=== PATIENT | female | born 2000 | race Caucasian/White ===

== ENCOUNTER → 2022-05-12 | Day surgery (SDC) | payer OTHER ==
[~2022-05-12] VITALS: Ht 167.6 cm; Wt 141.1 kg
[~2022-05-12] MED LIST: ADDERALL XR 2020 MG PO; ATORVASTATIN CA40 MG PO; BUSPAR5 MG PO; CLARITIN10 MG PO; FAMOTIDINE20 MG PO; METFORMIN HCL500 MG PO; METOPROLOL SUCC50 MG PO; PREGABALIN100 MG PO; PROMETHAZINE12.5 M1 PO; SERTRALINE HCL50 MG PO; TIZANIDINE HCL4 MG PO; VIBRAMYCIN100 MG PO; VICTOZA 3-0.6 MG/0.1 IJ; VITAMIN D310 MCG PO
[2022-05-12 08:18] LABS: HCG (URINE) SCREEN NEGATIVE (NEGATIVE)
[2022-05-12 08:40] LABS: BASOPHIL 0.8 % (0-2); EOSINOPHIL 1.5 % (0-5); HCT 39.1 % (37.0-47.0); HGB 12.7 g/dl (12.5-16.0); LYMPHOCYTE 39.3 % (15-48); MCH 28.9 pg (25.0-31.0); MCHC 32.5 g/dL (32.0-36.0); MCV 89.1 fL (78.0-100.0); MONOCYTE 8.3 % (0-12); MPV 10.7 fL (6.0-9.5); NRBC 0; PLT 318 K/uL (150-400); RBC 4.39 M/uL (4.20-5.40); RDW 12.9 % (11.5-14.0); WBC 7.5 K/uL (4.0-10.5)
[2022-05-12 08:46] LABS: BUN/CREAT RATIO (CALC) 11.1 RATIO; CREATININE 0.72 mg/dL (0.51-0.95)
== END | disposition home or self-care (01) ==
LOC: FAS 07:48
PROVIDERS: Oral & Maxillofacial Surgery
DX: K01.1 Impacted teeth (principal); K04.7 Periapical abscess without sinus; E66.01 Morbid (severe) obesity due to excess calories; E11.9 Type 2 diabetes mellitus without complications; E78.5 Hyperlipidemia, unspecified; F41.9 Anxiety disorder, unspecified; F32.A Depression, unspecified; Z68.43 Body mass index [BMI] 50.0-59.9, adult; Z79.84 Long term (current) use of oral hypoglycemic drugs; Z79.899 Other long term (current) drug therapy; Z88.0 Allergy status to penicillin; Z88.8 Allergy status to other drugs, medicaments and biological substances
CPT/HCPCS: 36415; 80048; 84703; 85025; J1100; J1885; J2250; J2405; J2704; J7120